=== PATIENT | female | born 1965 | race Caucasian/White ===

== ENCOUNTER → 2021-01-16 | Outpatient (CLI) | payer BC ==
[~2021-01-16] VITALS: Ht 165.1 cm; Wt 54.4 kg
[~2021-01-16] MED LIST: BACLOFEN 10MG T10 MG PO; FLEXERIL PO; HYDROCODONE-AP1 EAC6 PO; MAGNESIUM250 M1 PO; MOBIC15 MG PO; MOBIC7.5 MG PO; NABUMETONE 500500 M2 PO; NEURONTIN600 MG PO; PREDNISONE 10 M10 MG PO; TIZANIDINE HCL4 M1 PO; TRAMADOL 50 MG50 MG PO; VIIBRYD20 MG PO; ZOLOFT50 MG PO
[2021-01-16 08:59] VITALS: BP 127/89
--- NOTE | 2021-01-16 09:20 | NUR ---
Pain Clinic Assessment: 1. History of Osteoarthritis: Not Applicable History of Rheumatoid Arthritis: Not Applicable 2. Height: 5 ft. 5 in. 165.1 cm. Weight: 120.0 lb. oz. 54.432 kg. Patient's BMI: 20.0 3. Vital Signs: BP: 127/89 Pulse: 60 Resp: 14 Temp: 02 Sat: 98 ECG Mon: 4. Pain Intensity: 7 5. Fall Risk: Dizziness: N Needs help standing or walking: N Fallen in the last 3 months: N Fall risk comments: 6. Patient on Blood Thinner: None 7. History of Hypertension: N 8. Opioid Therapy greater than 6 weeks: N Opiate Contract Signed: 9. Risk Assessment Tool Provided: 1 LOW RISK 10. Functional Assessment Tool: 11. Recreational Drug Use: Never Drug Type: Tobacco Use: Former Smoker Tobacco Type: Amount or Packs/day: How Many Years: Alcohol Use: Yes Frequency: Weekly Quant: 2
== END ==
LOC: PAIN 06:58
PROVIDERS: ATTEND Anesthesiology Pain Medicine
DX: M51.16 Intervertebral disc disorders with radiculopathy, lumbar region (principal); M79.661 Pain in right lower leg; M54.5 Low back pain; Z79.891 Long term (current) use of opiate analgesic; Z79.899 Other long term (current) drug therapy

== ENCOUNTER → 2021-02-06 | Outpatient (CLI) | payer BC ==
[~2021-02-06] VITALS: Ht 165.1 cm; Wt 55.1 kg
[~2021-02-06] MED LIST changes: +TUMERSAID TABL1 EACH PO
--- NOTE | ~2021-02-06 | HPC ---
[facility] [address] [place] [address] PAIN MANAGEMENT CONSULTATION Name: EL HECTOR Room #: REG IGOR Portillo.#: [id number] Admission: 02/06/21 Attend Phys: Evaristo Pendleton DO Discharge: Date of : 69 Report #: [id number] THIS REPORT FOR: cc: Jerry Sol MD, Neal A. MD Johnson, James E. DO ~ DOC #: [id number] cc: MD Evaristo Flaherty DO DATE OF SERVICE: 02/06/2021 REFERRING PHYSICIAN: Jerry Sol MD CHIEF COMPLAINT: Neck pain, right upper extremity pain with intermittent paresthesias. HISTORY OF PRESENT ILLNESS: As you know, the patient is a very pleasant 55-year-old female reporting a year long history of neck pain, right upper extremity pain with paresthesias. She indicates pain intensified after long meetings and Zoom meetings over the computer due to COVID restrictions of traveling and going to her typical job. She was seen in consultation per the request of Dr. Jerry Sol on 01/16/2021 with diagnosis of cervical radiculopathy, foraminal stenosis of the cervical spine, facet arthropathy of cervical spine and chronic cervicalgia. At that visit, we discussed the various treatment options for symptoms. She chose to begin with conservative treatment, undergoing physical therapy and medication changes. She states the combinations of physical therapy along with b.i.d. to t.i.d. nabumetone 500 mg dose and intermittent baclofen is working well, in fact 50% improvement in overall pain. She is very pleased with response to treatment, returning today, requesting refills of the nabumetone and baclofen, but also to discuss the continuation of formalized physical therapy as she has found excellent benefit, near 50% improvement in symptoms. She returns to discuss the continuation of the current treatment course. ALLERGIES: No known drug allergies. CURRENT MEDICATIONS: Adderall 5 mg once a day, magnesium 30 mg once a day, Zoloft 100 mg per day, turmeric 1 tab per day, baclofen 10 mg t.i.d. p.r.n. muscle spasms, nabumetone 500 mg t.i.d. with meals for baseline pain control. SOCIAL HISTORY: The patient denies tobacco, denies IV or illicit drug use. Admits to about 1 alcohol beverage per day. She is a telesales specialist, working, not receiving Workmen's Compensation, unaccompanied at today's visit. IMAGING: No new imaging available. [address] [address] PAIN MANAGEMENT CONSULTATION Name: EL HECTOR Room #: REG IGOR Hallman#: [id number] Admission: 02/06/21 Attend Phys: Evaristo Pendleton DO Discharge: Date of : 69 Report #: [id number] PHYSICAL EXAMINATION: VITAL SIGNS: Blood pressure 133/85, pulse is 60, respiratory rate 14 and unlabored. The patient 98% on room air. Height 5 feet 5 inches tall, weight 121.4 pounds, BMI calculated 20.2. GENERAL: Well-developed, well-nourished, well-hydrated 55-year-old female. She appears her stated age. She is in no acute distress, awake, alert and oriented x 3. Current pain score is rated at 5/10. HEENT: Normocephalic, atraumatic. Pupils equal, round and responsive. She is wearing a mask in compliance with COVID-19 regulations. EXTREMITIES: Show no clubbing, no cyanosis, no appreciable edema. MUSCULOSKELETAL: The patient is intact to light touch from C5-T1 dermatomes. Upper extremity strength equal and symmetrical, 5/5. Spurling's test is positive right, negative left. Pain is elicited with lateral flexion to the right and rotation of the right, though this has improved significantly, and there is much less restriction in movement. ASSESSMENT: 1. Cervical radiculopathy. 2. Foraminal stenosis of cervical spine. 3. Facet arthropathy of cervical spine. 4. Chronic cervicalgia. 5. Chronic intractable pain. PLAN: 1. The patient returns today in followup visit indicating about a 50% improvement in overall symptoms with a combination of physical therapy, nabumetone b.i.d. to t.i.d. for baseline pain control and the use of baclofen on a p.r.n. basis. She is very pleased with response to the treatment and wishes to continue this conservative treatment course. She is denying any side effects to the medication including sleepiness, disorientation, confusion and mental slowing with the baclofen and no dyspepsia, worsening of blood pressure, lower extremity edema noted with the nabumetone. Overall, the patient is very happy with the treatment course at this time and wishes to continue treatment. 2. The patient will continue physical therapy as necessary. She is attending twice a week, may reduce that number in the next couple of weeks, though I recommend she continue formalized PT assuming she continues to see benefit. She will continue the physical therapy with her current therapist. 3. I provided the patient a prescription of nabumetone 500 mg dose 1 tab p.o. t.i.d., #90 with 5 refills, 6 months' worth of medication. The patient was advised to continue to watch for any dyspepsia, worsening of blood pressure, lower extremity edema with use of medication today. She is experiencing no side effects. We recommend she continue treatment. Prescription sent via e-scribe to local pharmacy. 4. The patient was provided a refill prescription of her baclofen 10 mg dose 1 tab p.o. t.i.d. She is denying side effects of this medication including sleepiness, disorientation, confusion, mental slowing. She does note good [facility] [address] [place] [address] PAIN MANAGEMENT CONSULTATION Name: EL HECTOR Room #: [facility] Viji#: [id number] Admission: 02/06/21 Attend Phys: Evaristo Pendleton DO Discharge: Date of : 69 Report #: [id number] efficacy and improvement in muscle spasming with the therapy. I have sent the prescription with 5 refills, 6 months' worth of medication. This was sent via e-scribe. 5. We will see the patient back in followup visit on an as needed basis. We are hopeful the patient will continue to see good and prolonged benefit with the current treatment course, but will be available if she wishes to make any changes. DO LINDA Carvajal/JENNYFER By: 1 1949 Evaristo Pendleton DO /santos
[2021-02-06 09:15] VITALS: BP 133/85
--- NOTE | 2021-02-06 09:26 | NUR ---
Pain Clinic Assessment: 1. History of Osteoarthritis: Not Applicable History of Rheumatoid Arthritis: Not Applicable 2. Height: 5 ft. 5 in. 165.1 cm. Weight: 121.4 lb. oz. 55.067 kg. Patient's BMI: 20.2 3. Vital Signs: BP: 133/85 Pulse: 60 Resp: 14 Temp: 02 Sat: 98 ECG Mon: 4. Pain Intensity: 5 5. Fall Risk: Dizziness: N Needs help standing or walking: N Fallen in the last 3 months: N Fall risk comments: 6. Patient on Blood Thinner: None 7. History of Hypertension: N 8. Opioid Therapy greater than 6 weeks: N Opiate Contract Signed: 9. Risk Assessment Tool Provided: 1 LOW RISK 10. Functional Assessment Tool: 11. Recreational Drug Use: Never Drug Type: Tobacco Use: Former Smoker Tobacco Type: Amount or Packs/day: How Many Years: Alcohol Use: Yes Frequency: Quant:
== END ==
LOC: PAIN 07:26
PROVIDERS: ATTEND Anesthesiology Pain Medicine
DX: M54.12 Radiculopathy, cervical region (principal); M48.02 Spinal stenosis, cervical region; G89.4 Chronic pain syndrome; Z79.891 Long term (current) use of opiate analgesic; Z79.899 Other long term (current) drug therapy

== ENCOUNTER → 2021-05-22 | Outpatient (CLI) | payer BC ==
[~2021-05-22] VITALS: Ht 165.1 cm; Wt 53.5 kg
[2021-05-22 09:35] VITALS: BP 111/79
--- NOTE | 2021-05-22 09:35 | NUR ---
Pain Clinic Assessment: 1. History of Osteoarthritis: Not Applicable History of Rheumatoid Arthritis: Not Applicable 2. Height: 5 ft. 5 in. 165.1 cm. Weight: 118.0 lb. oz. 53.524 kg. Patient's BMI: 19.6 3. Vital Signs: BP: 111/79 Pulse: 63 Resp: 16 Temp: 02 Sat: 98 ECG Mon: 4. Pain Intensity: 4 5. Fall Risk: Dizziness: N Needs help standing or walking: N Fallen in the last 3 months: N Fall risk comments: 6. Patient on Blood Thinner: None 7. History of Hypertension: N 8. Opioid Therapy greater than 6 weeks: N Opiate Contract Signed: 9. Risk Assessment Tool Provided: 1 LOW RISK 10. Functional Assessment Tool: 11. Recreational Drug Use: Never Drug Type: Tobacco Use: Former Smoker Tobacco Type: Amount or Packs/day: How Many Years: Alcohol Use: Yes Frequency: Weekly Quant: 5
--- NOTE | 2021-05-23 16:30 | HPC ---
[facility] [address] [place] [address] PAIN MANAGEMENT CONSULTATION Name: EL HECTOR Room #: REG IGOR Jesse.#: [id number] Admission: 05/22/21 Attend Phys: Sruthi Overton Discharge: Date of : 69 Report #: [id number] THIS REPORT FOR: cc: Jerry Sol MD, Neal A. MD Hocker,Srutih CRUZ ~ cc: Jerry Sol MD, Evaristo Pendleton DO DATE OF SERVICE: 05/22/2021 CHIEF COMPLAINT: Neck pain, right upper extremity pain and paresthesias. HISTORY OF PRESENT ILLNESS: This is a pleasant 56-year-old female who returns to the pain clinic today as a result of a flare that she had in her cervical region. Today, the patient reports that neck pain was intensified a week and a half ago in her right shoulder, right occipital areas of her head. It was very painful to turn her head. She reports at that time, she started being more vigilant with her physical therapy exercises at home. She also increased her nabumetone to 3 times a day and her muscle relaxant to twice a day as well. Since that time, her pain has slowly been decreasing, though it remains higher than her average at 4/10 today. She describes her pain today as a throbbing tender sensation again in the cervical region that radiates into the right shoulder. It is worse with inactivity. Today, she is unsure if she needed to come to this appointment, but wanted to discuss this recent flare. ALLERGIES: No known drug allergies. CURRENT LIST OF MEDICATIONS: Nabumetone 500 mg p.r.n., baclofen p.r.n., tumeric, magnesium, Viibryd, tizanidine. PATIENT'S PQRS: Shows: 1. Denies osteo or rheumatoid arthritis. Height is 5 feet 5 inches, weight is 118, BMI is 19. 2. Vital signs: Blood pressure 111/79, pulse is 63, respirations 16, oxygen sat is 98%. 3. Pain score is 4/10. 4. Denies dizziness, does not need help walking or standing, has not fallen in the last 3 months. 5. The patient is not on any blood thinners or medications for hypertension. She is not on any opioids. 6. Risk assessment: Low. 7. Functional assessment: 40/70. 8. Recreational drug use: She denies. She is not a smoker and occasionally drinks alcohol. PHYSICAL EXAMINATION: GENERAL: This is alert and orientated, well-developed, well-nourished, [address] [address] PAIN MANAGEMENT CONSULTATION Name: EL HECTOR Room #: REG IGOR Hallman#: [id number] Admission: 05/22/21 Attend Phys: Sruthi Overton Discharge: Date of : 69 Report #: [id number] well-hydrated 56-year-old female who appears her stated age, rating her pain score today at 4/10. HEENT: Normocephalic, atraumatic. Extraocular eye muscles are intact. She is wearing a mask for COVID precautions. EXTREMITIES: No clubbing, no cyanosis, no edema. MUSCULOSKELETAL: She has tenderness in her cervical spine that radiates upwards towards her right occipital area as well as into her right shoulder. She has intact to light touch from C5-T1. Strength in her upper extremities is equal and symmetrical. Pain is elicited with lateral flexion and rotation greater to the left than the right. ASSESSMENT: 1. Cervical radiculopathy. 2. Foraminal stenosis of the cervical spine. 3. Facet arthropathy of the cervical spine. 4. Chronic cervicalgia. 5. Chronic intractable pain. PLAN: 1. We discussed treatment options with the patient today. The patient developed this flare in her cervical region a week and a half ago. At that time, she did increase her medication. I did reinforce that that is appropriate thing to do, increasing her anti-inflammatories up to 3 times a day to get her through the initial flare. I did remind her to take this medication with food as to not have any GI upset from the medication. Then, once the flare has decreased, she may slowly decrease her naproxen back to the level of once a day or twice a day depending on her pain. 2. The patient has increased her baclofen. Again, I reemphasized that that is appropriate as well and to decrease back to her nighttime dose when she is able. 3. We also discussed utilizing heat or ice to that area as well as gentle stretching, especially in the shower when it is possibly less stiff, but to continue her daily exercises at home and her physical therapy. 4. We also discussed Salonpas or lidocaine cream in this cervical occipital area when it is flared to see if that helps decrease as well. 5. The patient will return as needed for medication management or she may obtain these medications from Dr. Sol, her primary care physician. Time spent in patient consultation, reviewing pertinent studies and imaging, recent studies and clinical notes and physician reports and physical examination, and correlation of physical findings and medical documentation to determine possible treatments, 12 minutes. Time spent preparing for appointment, reviewing prescription, monitoring reports, reviewing previous records and proposed treatment options and reviewing current medications, 4 minutes. Time spent with collaborating physician, discussing her case and documentation of visit and plan of treatment, 4 minutes. [facility] [address] [place] [address] PAIN MANAGEMENT CONSULTATION Name: EL HECTOR Room #: REG IGOR Hallman#: [id number] Admission: 05/22/21 Attend Phys: Sruthi Overton Discharge: Date of : 69 Report #: [id number] Total time spent 20 minutes. <ELECTRONICALLY SIGNED> By: Sruthi Overton 05/23/21 1630 0901 [id number] Sruthi Overton /nt
== END ==
LOC: PAIN 06:44
PROVIDERS: ATTEND Clinical Nurse Specialist Adult Health
DX: M47.22 Other spondylosis with radiculopathy, cervical region (principal); M48.02 Spinal stenosis, cervical region; G89.29 Other chronic pain; M79.621 Pain in right upper arm